=== PATIENT | male | born 1965 | race Caucasian/White ===

== ENCOUNTER 2018-08-22 13:37 | Emergency (ER) | payer SELFPAY ==
[2018-08-22 13:58] VITALS: BP 127/85
--- NOTE | 2018-08-22 15:55 | ER Document Report ---
ED General - General Chief Complaint: Anxiety Stated Complaint: POSSIBLE ANXIETY Time Seen by Provider: 08/22/18 15:40 Mode of Arrival: Ambulatory Information source: Patient Notes: 53-year-old male with COPD, depression, anxiety presents with complaint of worsening depression and anxiety. Patient admits to increased stressors at home and with work. He states that after 20 years of marriage him and his split up over the summer. He states that he has become more lonely, depressed and anxious. Patient also states that he has been out of work for a few weeks which has worsened his anxiety. Patient denies homicidal, suicidal ideation. He denies visual and auditory hallucinations. He states that as a teenager he was treated for depression but has not recently been treated or hospitalized for depression or anxiety. He does state that his primary care physician did provide him with Xanax which does help with the anxiety attacks but not with the depression. Patient currently denies any fever, chills, nausea, vomiting, chest pain, shortness of breath, abdominal pain, back pain. TRAVEL OUTSIDE OF THE [place] IN LAST 30 DAYS: No - HPI Onset: Other Onset/Duration: Intermittent Quality of pain: No pain Associated symptoms: denies: Chest pain, Diarrhea, Fever, Headache, Nausea, Vomiting, Shortness of breath Exacerbated by: Denies Relieved by: Denies Similar symptoms previously: Yes Recently seen / treated by doctor: Yes - Related Data Allergies/Adverse Reactions: No Known Allergies Allergy (Verified 08/22/18 15:43) Past Medical History - General Information source: Patient, [facility] Records - Social History Smoking Status: Current Every Day Smoker Cigarette use (# per day): Yes - 20 Chew tobacco use (# tins/day): No Smoking Education Provided: Yes - Smoking cessation counseling was provided for 4 minutes at the bedside Frequency of alcohol use: None Drug Abuse: None Lives with: Alone Family History: Reviewed & Not Pertinent Patient has suicidal ideation: No Patient has homicidal ideation: No Pulmonary Medical History: Reports: Hx COPD Renal/ Medical History: Denies: Hx Peritoneal Dialysis Psychiatric Medical History: Reports: Hx Depression Review of Systems - Review of Systems Notes: REVIEW OF SYSTEMS: CONSTITUTIONAL : Denies fever, chills, or sweats. Denies recent illness. Denies weight loss, recent hospitalizations. EENT: Denies visual changes, eye pain. Denies sore throat, oral lesions, difficulty swallowing. CARDIOVASCULAR: Denies chest pain. Denies palpitations. Denies lower extremity edema. RESPIRATORY: Denies cough. Denies shortness of breath, wheezing. GASTROINTESTINAL: Denies abdominal pain or distention. Denies nausea, vomiting , or diarrhea. Denies blood in vomitus, stools, or per rectum. Denies black, tarry stools. Denies constipation. GENITOURINARY: Denies difficulty urinating, painful urination, frequency, blood in urine, testicular pain or penile discharge. MUSCULOSKELETAL: Denies back or neck pain or stiffness. Denies joint pain or swelling. SKIN: Denies rash, lesions or sores. HEMATOLOGIC : Denies easy bruising or bleeding. LYMPHATIC: Denies swollen glands. NEUROLOGICAL: Denies confusion or altered mental status. Denies loss of consciousness. Denies dizziness or lightheadedness. Denies headache. Denies weakness or paralysis. Denies problems difficulty with ambulation, slurred speech. Denies sensory loss, numbness, or tingling. Denies seizures. PSYCHIATRIC: Denies suicidal ideation, homicidal ideation, auditory and visual hallucination Physical Exam - Vital signs Vitals: Temp Pulse Resp BP Pulse Ox 98.8 F 102 H 16 127/85 H 100 08/22/18 13:54 08/22/18 13:54 08/22/18 13:54 08/22/18 13:54 08/22/18 13:54 - Notes Notes: PHYSICAL EXAMINATION: GENERAL: Well-appearing, well-nourished and in no acute distress. HEAD: Atraumatic, normocephalic. EYES: Pupils equal round and reactive to light, extraocular movements intact, sclera anicteric, conjunctiva are normal. ENT: Nares patent, oropharynx clear without exudates. Moist mucous membranes. NECK: Normal range of motion, supple without lymphadenopathy LUNGS: Breath sounds clear to auscultation bilaterally and equal. No wheezes rales or rhonchi. HEART: Regular rate and rhythm without murmurs ABDOMEN: Soft, nontender, nondistended abdomen. No guarding, no rebound. No masses appreciated. Musculoskeletal: Normal range of motion, no pitting or edema. No cyanosis. NEUROLOGICAL: Cranial nerves grossly intact. Normal speech, normal gait. Normal sensory, motor exams PSYCH: Normal mood, normal affect. SKIN: Warm, Dry, normal turgor, no rashes or lesions noted. Course - Re-evaluation Re-evalutation: 08/23/18 12:37 53-year-old male presents with concern for worsening depression and anxiety. Admits to recent increased stressors with from his was not able to go back to work due to lack of need. Patient denies any suicidal, homicidal ideation. He denies visual and auditory hallucinations. Upon my exam patient is tearful but alert, oriented and cooperative. He seems to have good judgment and maintains good eye contact. Admits to being lonely after his left. Does have a mom in town which he is close to. Has never undergone psychiatric therapy since being a teenager. States that he has an upcoming appointment with psychiatric services locally in the next few days. Our psychology team did evaluate the patient and home-going medication recommendations were given. Patient's mother has now joined him in expresses that she does not feel that the patient is a harm to himself. Patient provided recommended medications for 16 days his appointment is scheduled at that time. Patient was evaluated and treated as appropriate for the patient's presenting symptoms and complaint, with consideration of any critical or life threatening conditions that may be associated with their obtained history and exam as noted above. All results were discussed with patient and the patient's mother. Patient provided the opportunity to ask questions, and express concerns. Patient was educated on treatments based on their presumed diagnosis as noted above. At this time we will discharge the patient with return precautions and follow-up recommendations. Verbal discharge instructions given a the bedside. Medication warnings reviewed. Patient is in agreement with this plan and has verbalized understanding of return precautions. After careful consideration I feel that that patient can be safely discharged from the emergency department, they were advised to followup with a primary care physician in 2-3 days. Dictation on this chart was performed using voice recognition software and may result in unintended grammatical, spelling, syntax or errors. - Vital Signs Vital signs: Temp Pulse Resp BP Pulse Ox 98.8 F 102 H 16 127/85 H 100 08/22/18 13:54 08/22/18 13:54 08/22/18 13:54 08/22/18 13:54 08/22/18 13:54 Discharge - Discharge Clinical Impression: Anxiety Depression Qualifiers: Depression Type: unspecified Qualified Code(s): F32.9 - Major depressive disorder, single episode, unspecified Condition: Good Disposition: HOME, SELF-CARE Instructions: Anxiety ([facility]), Depression ([facility]) Additional Instructions: Please keep your already scheduled appointment with psychiatry on September 07. Follow up with your [id number] hours for further care or return to the ED IMMEDIATELY if symptoms worsen or you have any concerns. If you cannot afford to follow up with your primary care physician a list of low cost clinics have been provided at the end of your discharge papers as well. Most prescribed medications have multiple side effects. The safest thing to do is when filling your prescription speak to your pharmacist regarding possible interactions with your normal home medications and over the counter medications such as Ibuprofen, Tylenol, Benadryl. If you experience any symptoms that cause you discomfort or concern you should discontinue the medication immediately and return to the emergency room or call your primary care physician. Prescriptions: Buspirone HCl [Buspar 10 mg Tablet] 5 mg PO BID #32 tablet Citalopram Hydrobromide [Celexa 10 mg Tablet] 20 mg PO DAILY #16 tablet Forms: Smoking Cessation Education, Elevated Blood Pressure
== END 2018-08-22 16:54 | disposition home or self-care (01) ==
LOC: ER 13:37
DX: F41.9 Anxiety disorder, unspecified (principal); Z79.899 Other long term (current) drug therapy; F32.9 Major depressive disorder, single episode, unspecified; J44.9 Chronic obstructive pulmonary disease, unspecified; Z63.5 Disruption of family by separation and divorce; Z71.6 Tobacco abuse counseling; F17.210 Nicotine dependence, cigarettes, uncomplicated
CPT/HCPCS: 99283; 99406

== ENCOUNTER → 2018-09-25 | Outpatient (CLI) | payer SELFPAY ==
[2018-09-25 10:44] LABS: HEMATOCRIT 45.6 % (37.9-51.0); HEMOGLOBIN 15.4 g/dL (13.5-17.0); RED BLOOD COUNT 4.93 10^6/uL (4.35-5.55); WHITE BLOOD COUNT 7.7 10^3/uL (4.0-10.5)
[2018-09-25 10:45] LABS: ABSOLUTE BASOPHILS # (AUTO) 0.2 10^3/uL (0.0-0.2); ABSOLUTE EOSINOPHILS # (AUTO) 0.6 10^3/uL (0.0-0.6); ABSOLUTE LYMPHOCYTES (AUTO) 1.9 10^3/uL (0.5-4.7); ABSOLUTE MONOCYTES (AUTO) 0.7 10^3/uL (0.1-1.4); ABSOLUTE NEUT (AUTO) 4.3 10^3/uL (1.7-8.2); BASOPHILS % (AUTO) 2.2 % (0-2); EOSINOPHILS % (AUTO) 7.8 % (0-6); LYMPHOCYTES % (AUTO) 24.8 % (13-45); MEAN CORPUSCULAR HEMOGLOBIN 31.3 pg (27.0-33.4); MEAN CORPUSCULAR HGB CONC 33.8 g/dL (32.0-36.0); MEAN CORPUSCULAR VOLUME 93 fl (80-97); MONOCYTES % (AUTO) 9.2 % (3-13); PLATELET COUNT 288 10^3/uL (150-450); RED CELL DISTRIBUTION WIDTH 13.8 % (11.5-14.0); TOTAL CELLS COUNTED % (AUTO) 100 %
[2018-09-25 11:05] LABS: ALANINE AMINOTRANSFERASE 21 U/L (21-72); ALBUMIN 4.6 g/dL (3.5-5.0); ALKALINE PHOSPHATASE 82 U/L (38-126); ANION GAP 6 (5-19); ASPARTATE AMINO TRANSFERASE 21 U/L (17-59); BILIRUBIN,DIRECT 0.2 mg/dL (0.0-0.4); BILIRUBIN,TOTAL 0.4 mg/dL (0.2-1.3); BLOOD UREA NITROGEN 17 mg/dL (7-20); CALCIUM 10.1 mg/dL (8.4-10.2); CARBON DIOXIDE 31 mmol/L (22-30); CHLORIDE 104 mmol/L (98-107); CHOLESTEROL 245.16 mg/dL (0-200); GLUCOSE 96 mg/dL (75-110); POTASSIUM 5.2 mmol/L (3.6-5.0); SODIUM 140.7 mmol/L (137-145); TOTAL PROTEIN 8.2 g/dL (6.3-8.2); TRIGLYCERIDES 96 mg/dL (<150)
[2018-09-25 11:16] LABS: DIRECT LDL 178 mg/dL (<100)
== END ==
LOC: LAB 10:24
PROVIDERS: ATTEND Nurse Practitioner Psychiatric/Mental Health
DX: F31.81 Bipolar II disorder (principal); F40.00 Agoraphobia, unspecified; F41.0 Panic disorder [episodic paroxysmal anxiety]; F41.1 Generalized anxiety disorder; F43.10 Post-traumatic stress disorder, unspecified; F60.3 Borderline personality disorder; F90.2 Attention-deficit hyperactivity disorder, combined type
CPT/HCPCS: 36415; 80053; 80061; 84443; 85025

== ENCOUNTER 2019-05-16 01:11 | Emergency (ER) | payer SELFPAY ==
[2019-05-16 01:52] LABS: ABSOLUTE BASOPHILS # (AUTO) 0.1 10^3/uL (0.0-0.2); ABSOLUTE EOSINOPHILS # (AUTO) 0.3 10^3/uL (0.0-0.6); ABSOLUTE LYMPHOCYTES (AUTO) 2.3 10^3/uL (0.5-4.7); ABSOLUTE MONOCYTES (AUTO) 0.7 10^3/uL (0.1-1.4); ABSOLUTE NEUT (AUTO) 3.2 10^3/uL (1.7-8.2); BASOPHILS % (AUTO) 1.3 % (0-2); EOSINOPHILS % (AUTO) 4.2 % (0-6); HEMATOCRIT 38.7 % (37.9-51.0); HEMOGLOBIN 13.2 g/dL (13.5-17.0); LYMPHOCYTES % (AUTO) 35.1 % (13-45); MEAN CORPUSCULAR HEMOGLOBIN 32.5 pg (27.0-33.4); MEAN CORPUSCULAR HGB CONC 34.2 g/dL (32.0-36.0); MEAN CORPUSCULAR VOLUME 95 fl (80-97); MONOCYTES % (AUTO) 10.8 % (3-13); PLATELET COUNT 298 10^3/uL (150-450); RED BLOOD COUNT 4.07 10^6/uL (4.35-5.55); RED CELL DISTRIBUTION WIDTH 12.7 % (11.5-14.0); SEGMENTED NEUTROPHILS % (AUTO) 48.6 % (42-78); TOTAL CELLS COUNTED % (AUTO) 100 %; WHITE BLOOD COUNT 6.7 10^3/uL (4.0-10.5)
[2019-05-16] MEDS ORDERED: NORMAL SALINE 1000 ML 1,000 ML IV ONE (01:57)
--- NOTE | 2019-05-16 01:58 | ER Document Report ---
ED General - General Chief Complaint: Overdose Stated Complaint: POSSIBLE OVERDOSE Time Seen by Provider: 05/16/19 01:47 Mode of Arrival: Medic Information source: Patient TRAVEL OUTSIDE OF THE [place] IN LAST 30 DAYS: No - HPI Notes: Patient is a 54-year-old male history of depression, anxiety, previous suicide attempts presents to the emergency department with report of feeling depressed related to his girlfriend leaving him and then he took 45 tablets of 25 mg hydroxyzine and took Lamictal. The patient states he has a dry mouth and feels somnolent currently. The patient is unsure how many Lamictal tablets that he is taking. He denies alcohol use or other coingestants. The patient admits to attempting to kill himself. He denies any homicidal ideation or hallucinations. The patient feels somewhat dizzy. No constipation, abdominal pain, chest pain, difficulty breathing, nausea, vomiting. - Related Data Allergies/Adverse Reactions: No Known Allergies Allergy (Verified 08/22/18 15:43) Past Medical History - General Information source: Patient - Social History Smoking Status: Current Every Day Smoker Frequency of alcohol use: None Drug Abuse: None Lives with: Alone Family History: Reviewed & Not Pertinent Pulmonary Medical History: Reports: Hx COPD Renal/ Medical History: Denies: Hx Peritoneal Dialysis Musculoskeletal Medical History: Reports Hx Arthritis Psychiatric Medical History: Reports: Hx Depression Past Surgical History: Reports: Hx Orthopedic Surgery - collar bone Review of Systems - Review of Systems -: Yes All other systems reviewed and negative Physical Exam - Vital signs Vitals: Pulse Ox 98 05/16/19 01:12 - Notes Notes: PHYSICAL EXAMINATION: GENERAL: Somnolent and somewhat difficult to arouse. The patient then is conversant with slurred speech. HEAD: Atraumatic, normocephalic. EYES: Pupils equal round and reactive to light, extraocular movements intact, sclera anicteric, conjunctiva are normal. Patient does have mild lateral nystagmus noted. ENT: Nares patent, oropharynx clear without exudates. Very dry mucous membranes. NECK: Normal range of motion, supple without lymphadenopathy LUNGS: Breath sounds clear to auscultation bilaterally and equal. No wheezes rales or rhonchi. HEART: Regular rate and rhythm without murmurs ABDOMEN: Soft, nontender, nondistended abdomen. No guarding, no rebound. No masses appreciated. Musculoskeletal: Normal range of motion, no pitting or edema. No cyanosis. NEUROLOGICAL: Cranial nerves grossly intact. Normal sensory, motor exams. Slurred speech with ataxia. PSYCH: Flat affect. Reports depression and suicidal ideation. No hallucinations or homicidal ideation. SKIN: Warm, Dry, normal turgor, no rashes or lesions noted. Course - Re-evaluation Re-evalutation: 05/16/19 05:16 Patient was bolused 1 L normal saline and then was switched to D5 LR infusion. EKG as interpreted by me showed normal sinus rhythm heart rate of 90. There were nonspecific ST segment abnormalities or was a borderline prolonged QT interval of 416, but QRS duration was normal at 100. Patient was kept on the programs manager. Discussion was undertaken with poison control that advised that the patient needed observation for 12 hours to ensure that he would be medically cleared for psychiatric evaluation, and would need programs manager and any potassium and magnesium replacement. If there was any QRS widening noted, the patient would need supplemental sodium bicarb. Patient needs to be watched for seizure risk given the ingestion. - Vital Signs Vital signs: Temp Pulse Resp BP Pulse Ox 98.3 F 15 143/100 H 97 05/16/19 01:42 05/16/19 04:01 05/16/19 04:01 05/16/19 04:01 - Laboratory Result Diagrams: 05/16/19 01:26 05/16/19 01:26 Laboratory results interpreted by me: 05/16/19 05/16/19 05/16/19 01:26 01:26 01:26 RBC 4.07 L Hgb 13.2 L Urine Urobilinogen 2.0 H Salicylates < 1.0 L Acetaminophen < 10 L Discharge - Discharge Clinical Impression: Suicidal ideation Overdose Qualifiers: Encounter type: initial encounter Injury intent: intentional self-harm Qualified Code(s): T50.902A - Poisoning by unspecified drugs, medicaments and biological substances, intentional self-harm, initial encounter Disposition: PSYCH HOSP/UNIT
[2019-05-16 02:11] LABS: ACETAMINOPHEN < 10 ug/mL (10-30); ALBUMIN 3.7 g/dL (3.5-5.0); ALCOHOL < 10 mg/dL (NONE DETECTED); ALKALINE PHOSPHATASE 79 U/L (38-126); ANION GAP 8 (5-19); ASPARTATE AMINO TRANSFERASE 23 U/L (17-59); BILIRUBIN,DIRECT 0.3 mg/dL (0.0-0.4); BILIRUBIN,TOTAL 0.3 mg/dL (0.2-1.3); BLOOD UREA NITROGEN 8 mg/dL (7-20); CARBON DIOXIDE 28 mmol/L (22-30); CHLORIDE 106 mmol/L (98-107); GLUCOSE 106 mg/dL (75-110); POTASSIUM 3.7 mmol/L (3.6-5.0); SALICYLATE < 1.0 mg/dL (2.0-20.0); TOTAL PROTEIN 6.8 g/dL (6.3-8.2)
[2019-05-16 02:20] LABS: APPEARANCE,URINE CLEAR; BILIRUBIN,URINE NEGATIVE (NEGATIVE); COLOR,URINE YELLOW; GLUCOSE, URINE NEGATIVE (NEGATIVE); KETONES,URINE NEGATIVE (NEGATIVE); LEUKOCYTE ESTERASE,URINE NEGATIVE (NEGATIVE); NITRITE,URINE NEGATIVE (NEGATIVE); PROTEIN,URINE NEGATIVE (NEGATIVE)
[2019-05-16 02:34] LABS: URINE AMPHETAMINES SCREEN NEGATIVE; URINE BARBITURATES SCREEN NEGATIVE; URINE BENZODIAZEPINES SCREEN UNCONFIRMED POSITIVE; URINE COCAINE SCREEN NEGATIVE; URINE MARIJUANA (THC) SCREEN NEGATIVE; URINE METHADONE SCREEN NEGATIVE; URINE PHENCYCLIDINE SCREEN NEGATIVE
[2019-05-16] MEDS ORDERED: DEXTROSE 5%-LACTATED RINGERS 1,000 ML IV ONE (05:10)
--- NOTE | 2019-05-16 07:19 | EKG REPORT ---
SEVERITY:- ABNORMAL ECG - SINUS RHYTHM LEFT ANTERIOR FASCICULAR BLOCK BORDERLINE T ABNORMALITIES, ANT-LAT LEADS PROLONGED QT INTERVAL : Confirmed by: Jamaal Junior MD 16-May-2019 07:19:02
--- NOTE | 2019-05-16 10:55 | ER Document Report ---
Doctor's Note Notes: 05/16/19 10:47 Rounds: Chart reviewed and patient interviewed. Patient is awake and alert this morning. Patient is being evaluated and treated for suicidal ideation and an overdose, apparently of Vistaril and Lamictal. Patient has a history of bipolar disorder and anxiety and depression. Vital signs are all normal. Lab studies were essentially unremarkable except for his drug screen showing positive for benzos. Patient knows where he is relates what happened to him and why he is here. Patient appears to be medically stable for transfer or discharge. Emerald Ramirez MD 05/16/19 14:17 I have reassessed the patient. His vital signs are all normal. He is more awake now than it was earlier. Patient says he is not able to walk because he is too weak and shaky. We did assist him to stand at bedside and he is unsteady on his feet and could not walk without assistance. Even that is difficult. He says is from the medications he took. Patient says he is not an alcoholic and does not drink alcohol and does not think this is withdrawal from any substance. Patient was able to eat the main course of lunch and got me to open some milk so he could drink it with a straw. He is much more alert and responsive now than he was earlier this morning. Does not seem to have as much arm shaking as he did earlier today. Still, I believe patient to be stable for transfer. Emerald Ramirez MD
--- NOTE | 2019-05-16 11:44 | PSYCHOLOGICAL NOTE ---
Psych Note - Psych Note Date seen by psych provider: 05/16/19 Time seen by psych provider: 07:54 - Chart review at 0754. Attempted evaluation at 0832. Mother collateral from [phone]. Psych Note: Presenting Problem: OD of 45 tablets of Vistaril 25MG and 6 tablets of Lamictal 100MG, admitted to medical staff was an SI attempt but regretted after doing it, upset because girlfriend left him. Patient was sleeping and this clinician allowed him to continue. Patient's mother (Domenico Reynoso (Lee) [phone]) came to check on patient. She stated patient texted her last night at 1222 telling her what he wanted to be buried in and what he wanted her too do with his bel ongings. Mother also noted she received a text from patient's girlfriend/no fiance who said patient sent a text this morning saying Goodbye this cruel world and that he left a message on the wall at the home. The wall message said he wanted to be cremated, what clothes he wanted to be in and Goodbye cruel world/Goodbye/I'm leaving you today/Goodbye. She stated "because of his history with SI and attempts I called 05-20-." She stated while on the phone with 05-20- they told her someone had called in from his home. She stated the last time she spoke to him was before she went out of town with her and she encouraged him to go to an NA meeting/provided resources since his next therapy appointment at [facility] isn't until mid May. She noted she got patient to establish therapy at [facility] in February and they referred him to Dr. Fitzgerald at [facility] [facility] for medication: something for anxiety, something for Bipolar and another. She reported he is diagnosed with PTSD, ADHD, Bipolar and Depression. She stated patient an intentional OD in March and now, it is usually related to the girlfriend/now fiance who often leaves and he says he does not want to live without her. She noted in 2013 [place] got [place] opiates and got addicted again. She noted SA has been an ongoing problem. Mother stated in 2015 patient had an infection where they had to do multiple surgeries and ended up removing clavicle, during that time his UDS' were positive for Cocaine so opiates were stopped. She noted recent meth use which makes patient paranoid and hallucinate. [facility] saw patient 04/19/19 for possible OD, medications prescribed were: Zyprexa 5MG BID, Cogentin 1MG QD, Buspar 5MG BID, and he was going back to [facility]. Diagnosis: Hx PTSD Polysubstance Use (at least past) Anxiolytic (only one current) Methamphetamine Cocaine Opioids R/O Bipolar Impression/Plan: Recommendation to IVC patient due to SI attempt via OD, text messages sent to mother and girlfriend/now fiance, letter at home on wall, previous SI attempts. [facility] just saw patient 04/19/19. Consulted with Dr. Tyson regarding the management and care of patient. ED Physician in agreement with recommendations. Will seek placement once medically cleared. initial provider said that would not be until 1400.
--- NOTE | 2019-05-17 11:34 | ER Document Report ---
Doctor's Note Notes: 05/17/19 11:33 Rounds: Chart reviewed and patient evaluated. Patient's well-known to me as I was taking care of him all day yesterday in the emergency department. He is much better today. He can get out of the bed and stand on his own without any assistance. Says he feels a lot better. I think the shakes that he had p robably were related to the medications that he overdosed on but is showing marked improvement. Vital signs were all normal. No new labs to review. Patient appears to be medically stable for transfer or discharge. Emerald Ramirez MD
--- NOTE | 2019-05-17 15:27 | PSYCHOLOGICAL NOTE ---
Psych Note - Psych Note Date seen by psych provider: 05/17/19 Time seen by psych provider: 08:05 Psych Note: Presenting Problem: OD of 45 tablets of Vistaril 25MG and 6 tablets of Lamictal 100MG, admitted to medical staff was an SI attempt but regretted after doing it, upset because girlfriend left him. Chart review conducted: Was seen after intentional overdose on 04/19/2019. He stayed in the emergency department until 04/21/2019 and was discharged after stabilization on new psychiatric medications. Checking conducted with patient Patient reports that he went back on his old medications for psychiatric i.e. Lamictal. He denies remembering getting a prescription during his 04/19/2019 04/21/2019 [facility] ED visit. He confirms he intentionally overdose after getting upset because his girlfriend left him again. Patient's mood is oddly euthymic with congruent affect. Patient seems to have little insight into his multiple potential overdoses this month. Diagnosis: Hx PTSD Polysubstance Use (at least past) Anxiolytic (only one current) Methamphetamine Cocaine Opioids R/O Bipolar Impression/Plan: Recommendation to continue under IVC patient due to SI attempt via OD, text messages sent to mother and girlfriend/now fiance, letter at home on wall, previous SI attempts. Patient has been accepted to [facility] transportation is requested to occur after 7 [address] [facility]. Tyson was consulted to care management of this patient; attending physicians in agreement with augmentations and disposition.
--- NOTE | 2019-05-17 21:01 | ER Document Report ---
Doctor's Note Notes: 05/17/19 20:59 Patient is ambulating around the room and in no acute distress. He is stable for transfer
[2019-05-17 21:03] VITALS: BP 136/80
== END 2019-05-17 21:05 ==
LOC: ER 01:11
DX: T43.592A Poisoning by other antipsychotics and neuroleptics, intentional self-harm, initial encounter (principal); R68.2 Dry mouth, unspecified; R40.0 Somnolence; F17.200 Nicotine dependence, unspecified, uncomplicated; J44.9 Chronic obstructive pulmonary disease, unspecified
CPT/HCPCS: 93005; 99285; 96360; 96361; 36415; 80307 ×4; 83735; 85025; 80053; 81001; 93010; J7121; J7030